=== PATIENT | female | born 1940 | race Caucasian/White ===

== ENCOUNTER 2017-11-30 08:36 | Outpatient (CLI) | payer MEDICARE, OTHER ==
[2017-11-30] MEDS ORDERED: Iopamidol 370 76% 100 ML VIAL ONE (12:41)
== END 2017-11-30 08:37 | disposition home or self-care (01) ==
LOC: BICCT 08:36
PROVIDERS: ATTEND Family Medicine
DX: R19.7 Diarrhea, unspecified (principal); R11.2 Nausea with vomiting, unspecified
CPT/HCPCS: 74177

== ENCOUNTER 2019-10-25 15:49 | Outpatient (CLI) | payer MEDICARE, OTHER ==
--- NOTE | 2019-10-25 16:50 | RAD ---
RADIOGRAPH LUMBAR SPINE 2 VIEWS: DATE: 10/25/2019 HISTORY: 79-year-old female with low back pain and lumbar radiculopathy. COMPARISON: No prior lumbar spine studies are available. There is a thoracic spine radiograph of 01/11/2017. FINDINGS: There are 5 lumbar-type vertebrae. Previous T-spine radiograph demonstrated approximately 60-75% loss of height of the T12 vertebral bod y. There has been slight interval worsening of loss of height, currently approximately 85% maximum. There is a broad indentation of the superior endplate of L3 resulting in maximum of approximately 20- 35% central loss of height. There is associated minimal bony retropulsion of the posterior-superior aspect of the vertebral body. IMPRESSION: 1) there has been mild interval progression of high-grade old compression fracture of T12 vertebral b peter since 01/11/2017. The interval progression is of indeterminate age. 2) mild compression fracture-burst fracture of L3 vertebra, of indeterminate age.
--- NOTE | 2019-10-25 16:52 | RAD ---
Radiograph right hip 2 views: DATE: 10/25/2019 HISTORY: 79-year-old female with acute right hip-sacral pain. FINDINGS: Femoral head contour is maintained. Little or no right hip joint space narrowing. No subcapital osteo phytes. No fracture or dislocation. Degenerative changes of bilateral SI joints are mild to moderate, typical for this age group. IMPRESSION: No major pathology identified.
--- NOTE | 2019-10-25 16:53 | RAD ---
Radiograph pelvis one view: 10/25/2019 HISTORY: 79-year-old female with right pelvic pain FINDINGS: Pelvic ring is intact with no evidence of destructive osseous lesion. Bilateral femoral head contours are normal. No high-grade hip joint space narrowing. No fracture identified. IMPRESSION: Negative.
== END 2019-10-25 15:50 | disposition home or self-care (01) ==
LOC: BICRAD 15:49
PROVIDERS: ATTEND Family Medicine
DX: M53.3 Sacrococcygeal disorders, not elsewhere classified (principal); Z87.81 Personal history of (healed) traumatic fracture
CPT/HCPCS: 72100; 72170

== ENCOUNTER 2020-04-22 12:05 | Outpatient (CLI) | payer MEDICARE, OTHER ==
--- NOTE | 2020-04-22 13:02 | RAD ---
Exam: 2 views lumbar spine COMPARISON: 10/25/2019 HISTORY: Pain. Previous compression fractures. FINDINGS: AP and lateral weightbearing views of the lumbar spine demonstrate 5 lumbar type vertebra. Stable mild loss of vertebral body height at L3. Interval mild loss of vertebral body height at L2 and moderate loss of vertebral body height at L4. Progression of loss of vertebral body height at T12 . Stable atherosclerosis No spondylolisthesis IMPRESSION: 1. Slight interval progression in terms of loss of vertebral body height at T12. 2. Interval mild compression fracture at L2, age indeterminate. Interval moderate compression fractur e at L4, age indeterminate. 3. Stable compression deformity at L3. 4. Further evaluation with noncontrast lumbar spine MRI may be beneficial.
== END 2020-04-22 12:06 | disposition home or self-care (01) ==
LOC: BICRAD 12:05
PROVIDERS: ATTEND Family Medicine
DX: M54.5 Low back pain (principal); M43.9 Deforming dorsopathy, unspecified
CPT/HCPCS: 36415; 72100; 80053; 80061; 83036

== ENCOUNTER 2020-04-24 13:13 | Outpatient (CLI) | payer MEDICARE, OTHER ==
--- NOTE | 2020-04-24 17:02 | MRI ---
LUMBAR SPINE MRI WITHOUT CONTRAST: 04/24/20 COMPARISON: None. HISTORY: Shaky legs, radiculopathy with pain, recent radiographs performed 04/22/20 demonstrated multiple fract ures within the lumbar spine. TECHNIQUE: Multiplanar and multisequence MR imaging of the lumbar spine is obtained without contrast. FINDINGS: On the basis of five lumbar type vertebral bodies, the conus medullaris terminates at the L1-2 level. There is a remote burst fracture with mild retropulsion at T12. There is increased STIR signal withi n the L2, L3, and L4 vertebral bodies consistent with marrow edema. These vertebral bodies also demon strate irregularity of the superior end plates as seen on the recent radiographs performed 04/22/20. T his is consistent with acute superior end plate fractures of the L2, L3 and L4 vertebral bodies. The edema is most intense within the L4 vertebral body. No significant anterolisthesis or retrolisthesis is noted within the lumbar spine. T12-L1: Osseous retropulsion associated with the chronic burst fracture or T12 causes mild central ca nal stenosis. Intervertebral disc desiccation noted with mild disc bulge and mild bilateral facet hyp ertrophy. No significant central canal or neural foraminal stenosis. L1-2: Mild bilateral facet hypertrophy. There is disc space narrowing with disc desiccation and minim al disc bulge. No significant central canal or neural foraminal stenosis. L2-3: There is disc desiccation with mild disc bulge and mild bilateral facet hypertrophy. There is n o significant central canal or neural foraminal stenosis. L3-4: Mild bilateral facet hypertrophy. There is disc space narrowing with disc desiccation. No signi ficant central canal or neural foraminal stenosis. L4-5: Mild bilateral facet hypertrophy. There is disc desiccation. No significant central canal or ne ural foraminal stenosis. L5-S1: No central canal neural foraminal stenosis. No retropulsion is noted with respect to the acute L2, L3 or L4 vertebral body fracture. Imaged retroperitoneal structures appear grossly unremarkable. IMPRESSION: Acute superior end plate fractures of L2, L3, and L4 as detailed above, as seen on the 04/22/20 radiog raphs of the lumbar spine. POS: [facility]
== END 2020-04-24 13:14 | disposition home or self-care (01) ==
LOC: BICMRI 13:13
PROVIDERS: ATTEND Family Medicine
DX: M54.5 Low back pain (principal); S32.029A Unspecified fracture of second lumbar vertebra, initial encounter for closed fracture; S32.039A Unspecified fracture of third lumbar vertebra, initial encounter for closed fracture; S32.049A Unspecified fracture of fourth lumbar vertebra, initial encounter for closed fracture
CPT/HCPCS: 72148

== ENCOUNTER 2020-06-22 09:58 | Inpatient (IN) | payer MEDICARE, OTHER ==
[2020-06-22] MEDS ORDERED: Succinylcholine Chloride 20 MG/ML 10 ml SYRINGE FS ONE (10:05)
[2020-06-22] MEDS ORDERED: Fentanyl 100 MCG/2 ML VIAL ONE (10:30)
[2020-06-22] MEDS ORDERED: fentaNYL Citrate/PF 2,000 MCG in Sodium Chloride 0.9% 60 ML IV SCH (10:31)
[2020-06-22] MEDS ORDERED: Propofol 1,000 MG/100 ML VIAL IV ONE (10:32)
--- NOTE | 2020-06-22 10:37 | RAD ---
RADIOGRAPH CHEST 1 VIEW: DATE: 06/22/2020 TIME: 10:13 AM HISTORY: 80-year-old female with dyspnea and hypoxemia, status post intubation COMPARISON: 08/02/2005 FINDINGS: New finding of diffuse mild interstitial densities in the mid and lower lung zones. In the right lowe r lung zone, these are confluent into alveolar infiltrates. New ETT with tip at mid thoracic trachea. New esophagogastric tube coursing inferior to the diaphragm. No cardiomegaly or pneumothorax. IMPRESSION: 1) status post intubation with endotracheal tube and esophagogastric tube. 2) diffuse interstitial densities, right greater than left.
[2020-06-22] MEDS ORDERED: Sodium Chloride 0.9% 100 ML ONE (10:47)
[2020-06-22] MEDS ORDERED: cefTRIAXone\\ROCEPHIN 2 GM VIAL ONE (10:47)
[2020-06-22] MEDS ORDERED: Azithromycin 500 MG VIAL ONE (10:47)
[2020-06-22 10:48] LABS: ALT (SGPT) 25 U/L (8-55); AST (SGOT) 33 U/L (5-34); Albumin 3.9 g/dL (3.4-4.8); Alkaline Phosphatase 191 U/L (40-110); Anion Gap 17 mmol/L (10-20); BUN (Urea Nitrogen) 9 mg/dL (9.8-20.1); Bilirubin, Total 0.5 mg/dL (0.2-1.2); CK (CPK) 51 U/L (29-168); Calc. Creatinine Clearance 0 mL/min (70-130); Calcium 9.5 mg/dL (7.8-10.44); Carbon Dioxide 22 mmol/L (23-31); Chloride 101 mmol/L (98-107); Estimated GFR-MDRD 52; Globulin 3.9 g/dL (2.4-3.5); Glucose 406 mg/dL (83-110); Potassium 4.4 mmol/L (3.5-5.1); Protein, Total 7.8 g/dL (6.0-8.3); Sodium 136 mmol/L (136-145)
[2020-06-22 10:50] LABS: Hemoglobin 16.4 g/dL (12.0-16.0); Mean Corpuscular Hemoglobin 31.1 pg (27.0-31.0); Mean Corpuscular Volume 91.5 fL (78.0-98.0); Mean Platelet Volume 7.8 fL (7.4-10.4); Platelet Count 302 thou/uL (130-400); RBC Distribution Width 13.5 % (11.5-14.5); Red Blood Cell (RBC) Count 5.28 mill/uL (4.20-5.40)
[2020-06-22 10:52] LABS: Actual Bicarbonate (HCO3a) 19.6 mEq/L (22-28); Analyzer IN Cardio ER; Base Excess (BEa) -6.6 mEq/L (-2.0 to +3.0); CO2 Tension 41.5 mmHg (35.0-45.0); Calcium, Ionized (arterial) 1.22 mmol/L (1.12-1.30); Carboxyhemoglobin (COHb) 0.4 gm% (0.0-3.0); Hemoglobin (Hb) 16.1 g/dL (12.0-16.0); O2 Tension (PaO2), arterial 197.6 mmHg (> 60.0); Potassium - ABG Lab 4.21 mmol/L (3.70-5.30); pH, Arterial 7.29 (7.35-7.45)
[2020-06-22 10:59] LABS: ALV-art Gradient 463.525 (0-20); Puncture Site LBA
[2020-06-22 11:09] LABS: CKMB 2.1 ng/mL (0-6.6)
[2020-06-22 11:12] LABS: Band 1 % (5-11); Eosinophils 2 % (0-10); Lymphocytes 58 % (21-51); MDiff Complete? YES; Monocytes 3 % (0-10); Neutrophil 30 % (42-75); Platelet Morphology Comment Appears Adequate; Reactive Lymphocytes 5 % (0-10); White Blood Cell (WBC) Count 25.5 thou/uL (4.8-10.8)
[2020-06-22] MEDS ORDERED: Midazolam HCl 2 mg/2 ml Vial ONE (11:19)
--- NOTE | 2020-06-22 11:45 | CT ---
CT BRAIN WITHOUT CONTRAST: INDICATIONS: Altered mental status and fever. COMPARISON: Prior CT brain dated 01/11/2017. FINDINGS: Scattered hypodensities within the periventricular white matter appear largely stable when accounting for differences in scan technique. No definite acute infarct, hemorrhage or hydrocephalus is present . The septum pellucidum and third ventricle are midline. The mastoid air cells are clear. The paranas al sinuses are clear. The patient is intubated with associated nasogastric tube placement. IMPRESSION: 1. No acute intracranial abnormality. 2. Stable chronic ischemic change. POS: [facility]
--- NOTE | 2020-06-22 11:46 | CT ---
CT ANGIOGRAM THORAX WITH CONTRAST: (CTA pulmonary angiogram) DATE: 06/22/2020 HISTORY: 80-year-old female with dyspnea, respiratory distress TECHNIQUE: IV injection of iodinated contrast. Scan acquisition timing attempted to coincide with iodinated contrast bolus reaching maximal density in pulmonary arteries. 3-D MIP reconstructions. FINDINGS: Very good contrast opacification of pulmonary arteries. No filling defects in the pulmonic trunk, left and right main pulmonary arteries, or any of the proxi mal through distal branches. Faint contrast opacification of thoracic aorta. Atherosclerosis with calcified plaque, ectasia, and tortuosity of thoracic aorta. Esophagogastric tube. Endotracheal tube distal tip at mid thoracic trachea. Small bilateral pleural effusions occupying approximately 20% volume of each hemithoracic cavity. Adjacent broad, moderately large consolidations in the bilateral lower lobes with air bronchograms, p robably representing passive atelectasis, although pneumonia or aspiration is not ruled out. Additionally, there are heterogeneously distributed ill-defined broad groundglass densities, plus sma ller focal nodular densities, throughout the rest of the right lower lobe, and throughout the right upper lobe and right middle lobe. There are a few minimal scattered such densities in the contralater al left lower lobe and left upper lobe. No pericardial effusion or pneumothorax. Atherosclerotic calcification of coronary arteries. IMPRESSION: 1) no pulmonary thromboembolism. 2) small bilateral pleural effusions. 3) broad consolidations in bilateral lower lobes. These could represent passive atelectasis secondary to the pleural effusions, but aspiration or bacterial pneumonia are not excluded. 4) nonspecific finding of groundglass densities and nodular densities throughout the rest of the righ t lower lobe, right upper lobe, and right middle lobe. Possibilities include viral pneumonia and interstitial edema.
[2020-06-22] MEDS ORDERED: Acetaminophen 650 MG Suppository PR PRN (11:57)
[2020-06-22 12:03] LABS: SARS-CoV-2 NAA Rapid Test Not Detected (NotDetected)
[2020-06-22 12:48] LABS: Bacteria/HPF None Seen HPF (None Seen); Bilirubin Negative (Negative); Blood, Urine Negative (Negative); Clarity Clear (Clear); Glucose, Urine (Dipstick) 500 mg/dL (Negative); Ketone, Urine Negative (Negative); Leukocyte Negative Leu/uL (Negative); Nitrite Negative (Negative); Protein, Urine (Dipstick) 300 mg/dL (Neg-Trace); RBC/HPF 0-3 HPF (0-3); Specific Gravity, Urine 1.012 (1.002-1.036); Squamous Epithelial None Seen HPF (0-3); Urobilinogen Normal mg/dL (Less than 2); WBC/HPF 0-3 HPF (0-3)
[2020-06-22 13:31] LABS: Troponin I 0.144 ng/mL (< 0.028)
[2020-06-22] MEDS ORDERED: DISCONTINUE PREVIOUS NARCOTIC PAIN MEDICATIONS AND BENZODIAZEPINES FS SCH (13:31)
[2020-06-22] MEDS ORDERED: Fentanyl BOLUS 250 ML IVPB PRN (13:31)
[2020-06-22] MEDS ORDERED: Propofol BOLUS 1,000 MG/100 ML VIAL IV PRN (13:31)
[2020-06-22] MEDS ORDERED: Morphine 2 MG/ML VIAL SLOW IVP PRN (13:31)
[2020-06-22 13:46] LABS: Lactic Acid 4.2 mmol/L (0.5-2.2)
[2020-06-22 14:21] LABS: Lactic Acid 4.1 mmol/L (0.5-2.2)
[2020-06-22 14:25] VITALS: BMI 27.4
[2020-06-22] MEDS: NS 0.9% w/ 20 MEQ KCL 1,000 ML/1,000 ML BAG IV SCH (14:45)
[2020-06-22] MEDS ORDERED: Iopamidol-370 76% 500 ML 1 ML ONE (14:48)
[2020-06-22] MEDS ORDERED: Dextrose 50% Abboject 50 ML SYRINGE SLOW IVP PRN (15:07)
[2020-06-22] MEDS ORDERED: Dextrose 5% in Water 1,000 ML IV PRN (15:07)
--- NOTE | 2020-06-22 15:11 | HP ---
CHIEF COMPLAINT: Altered mentation, fever, cough. HISTORY OF PRESENT ILLNESS: An 80-year-old active female with a history of coronary artery disease, hyperlipidemia, TIA without significant residual deficit, type 2 diabetes mellitus, aortic sclerosis, hypertension, major depressive disorder, presenting with fever, altered mentation, and hypoxia. She was in her baseline functional status few days prior. 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 On , she was doing good, but today found to have fever and confusion as well as wheezing. During the ER evaluation, her sats were initially in 80s. She is moving her extremities spontaneously. Given her severe hypoxia and altered mentation, she got intubated in the ER. Her troponin was indeterminate and tachycardia. The EKG was negative for any ST-T wave changes. Chest x-ray showed significant infiltrate in the right upper lobe, middle lobe, as well as right lower lobe along with nodular densities. Her white count was significantly elevated at 25,000. Her UA is negative for any sign of infection. She was started on 2 L of fluid as well as ceftriaxone and Zithromax in the ER. Her lactic acid is elevated significantly at 6.1 with a repeat at 4.2. REVIEW OF SYSTEMS: Not obtainable. ALLERGIES: SHE IS ALLERGIC TO LIRAGLUTIDE. PAST MEDICAL HISTORY: 1. History of hypertension. 2. Hyperlipidemia. 3. Type 2 diabetes mellitus. 4. Valvular heart disease. 5. Iron deficiency anemia. 6. Aortic sclerosis. 7. Osteoporosis. 8. TIA. 9. Major depressive disorder. 10. Hearing loss. HOME MEDICATIONS: Not updated yet. FAMILY SOCIAL HISTORY: Not obtained as the patient is being intubated. FAMILY HISTORY: Not able to gather the information. PHYSICAL EXAMINATION: VITAL SIGNS: Her pulse is 69, blood pressure 103/67. She is saturating about 97% with FiO2 of 50. GENERAL: The patient is on vent. No volume overload picture. Breathing with the vent. SKIN: The patient did not have any skin changes including abrasions. CARDIOVASCULAR: Regular rate and rhythm without murmurs, rubs, or gallops. LUNGS: With anterior auscultation. I did not appreciate much stridor, wheezing , or coarse crackles. ABDOMEN: Soft, nontender, nondistended. Bowel sounds are positive. NEUROLOGICAL: No focal deficits. EXTREMITIES: I did not appreciate any rash or other abnormalities. Dorsalis pedis pulse palpable. LABORATORY DATA: CBC with WBC of 25.5, hemoglobin 16.4, platelet is 302,000. Her electrolyte panel with a creatinine 1.02, anion gap of 17, bicarb of 22, sodium of 136, potassium 4.4. Her lactic acid 6.1 and 4.2 with a repeat. Troponin 0.034 and repeat was 0.144. Her BNP is 815. She is negative for COVID. IMPRESSION AND PLAN: This is an 80-year-old female with multiple medical histories, presenting with the followin. Sepsis, secondary to community-acquired pneumonia, present on admission. Blood cultures are done. We will follow up the aggressive IV fluid hydration with 30 mL/kg and she got 2 L so far. We will continue for another liter before titrating further down. Follow up with blood cultures. Continue with ceftriaxone and Zithromax to cover for community-acquired pneumonia and escalate or deescalate the antibiotics as clinically indicated. Presenting with severe lactic acidosis and 25,000 white count, wondering whether there is any additional process going on. 1b. Acute hypoxic respiratory failure, requiring intubation. 1c. Aspiration pneumonia cannot be ruled out. 2. Type 2 diabetes mellitus. Her current blood glucose around 406. We will add the scheduled insulin as well as sliding scale. 3. Indeterminate/abnormal troponin, obviously due to dehydration, pneumonia, and lactic acidosis. Suggestive of metabolic mismatch/demand ischemia. The patient does have a history of coronary artery disease. We will follow the clinical course. 4.Elevated BNP of 815 and creatinine 1.02. I do not have her home medications yet as well. We will get the 2D echo to assess fully her heart function. Once the sepsis protocol completed, we may have to start her on diuretics if the echo is suggestive of less than normal EF. Type 2 diabetes mellitus. Check A1c. Start her on a scheduled and sliding scale insulin. Place NG tube and consider starting tube feeds tomorrow. DVT prophylaxis with Lovenox. Full code. Job ID: [id number] [facility]
[2020-06-22 16:06] LABS: Bacteria/HPF None Seen HPF (None Seen); Bilirubin Negative (Negative); Blood, Urine Trace (Negative); Clarity Clear (Clear); Glucose, Urine (Dipstick) 200 mg/dL (Negative); Ketone, Urine Negative (Negative); Leukocyte Negative Leu/uL (Negative); Nitrite Negative (Negative); Protein, Urine (Dipstick) 100 mg/dL (Neg-Trace); Specific Gravity, Urine 1.035 (1.002-1.036); Squamous Epithelial 0-3 HPF (0-3); Urobilinogen Normal mg/dL (Less than 2); pH, Urine 6.5 (5.0-9.0)
[2020-06-22 16:52] LABS: Troponin I 0.422 ng/mL (< 0.028)
[2020-06-22 18:15] LABS: CKMB 4.9 ng/mL (0-6.6)
[2020-06-22] MEDS: Enoxaparin Sodium 60 MG/0.6 ML SYRINGE SC SCH (20:03)
[2020-06-22] MEDS: Insulin Glargine 5 UNITS in Pre-Filled Syringe SC SCH (20:03)
[2020-06-22] MEDS: HumaLOG 300 UNITS/3 ML VIAL SC PRN (20:04)
[2020-06-22] MEDS ORDERED: Enoxaparin Sodium 40 MG/0.4 ML SYRINGE SC SCH (21:00)
[2020-06-23] MEDS: Acetaminophen 325 MG TAB PO PRN (00:27)
[2020-06-23] MEDS: Propofol 1,000 MG/100 ML VIAL IV PRN ×3 (00:27→19:45)
[2020-06-23] MEDS: NS 0.9% w/ 20 MEQ KCL 1,000 ML/1,000 ML BAG IV SCH (01:44)
[2020-06-23] MEDS: fentaNYL Citrate/PF 2,000 MCG in Sodium Chloride 0.9% 60 ML IV SCH (03:08)
[2020-06-23 03:41] LABS: Hemoglobin A1c 6.9 % (4.0-6.0)
[2020-06-23] MEDS: HumaLOG 300 UNITS/3 ML VIAL SC PRN ×3 (05:53→17:46)
[2020-06-23 06:38] LABS: Chloride 110 mmol/L (98-107); Potassium 4.4 mmol/L (3.5-5.1); Sodium 138 mmol/L (136-145)
[2020-06-23 06:39] LABS: Glucose 227 mg/dL (83-110)
[2020-06-23 06:41] LABS: Anion Gap 14 mmol/L (10-20); Carbon Dioxide 18 mmol/L (23-31)
[2020-06-23 06:42] LABS: Calc. Creatinine Clearance 47 mL/min (70-130); Estimated GFR-MDRD 47
[2020-06-23 06:43] LABS: BUN (Urea Nitrogen) 15 mg/dL (9.8-20.1)
[2020-06-23 06:45] LABS: #Lymphocytes 2.3 thou/uL (1.20-3.40); #Monocytes 0.8 thou/uL (0.11-0.59); #Neutrophils 7.4 thou/uL (1.40-6.50); %Basophils 0.3 % (0.0-1.0); %Eosinophils 0.3 % (0.0-10.0); %Lymphocytes 22.1 % (21.0-51.0); %Monocytes 7.1 % (0.0-10.0); %Neutrophils 70.1 % (42.0-75.0); Hemoglobin 12.1 g/dL (12.0-16.0); Magnesium 1.4 mg/dL (1.6-2.6); Mean Corpuscular HGB CONC 32.8 g/dL (32.0-36.0); Mean Corpuscular Hemoglobin 29.6 pg (27.0-31.0); Mean Corpuscular Volume 90.1 fL (78.0-98.0); Mean Platelet Volume 8.9 fL (7.4-10.4); Platelet Count 143 thou/uL (130-400); RBC Distribution Width 13.9 % (11.5-14.5); Red Blood Cell (RBC) Count 4.08 mill/uL (4.20-5.40); White Blood Cell (WBC) Count 10.5 thou/uL (4.8-10.8)
[2020-06-23 07:20] LABS: Actual Bicarbonate (HCO3a) 18.9 mEq/L (22-28); Base Excess (BEa) -6.5 mEq/L (-2.0 to +3.0); CO2 Tension 37.1 mmHg (35.0-45.0); Calcium, Ionized (arterial) 1.14 mmol/L (1.12-1.30); Carboxyhemoglobin (COHb) 0.3 gm% (0.0-3.0); Hemoglobin (Hb) 12.8 g/dL (12.0-16.0); O2 Tension (PaO2), arterial 101.6 mmHg (> 60.0); Potassium - ABG Lab 4.18 mmol/L (3.70-5.30); pH, Arterial 7.32 (7.35-7.45)
[2020-06-23 07:21] LABS: Puncture Site RRA
[2020-06-23 07:22] LABS: ALV-art Gradient 172.875 (0-20)
[2020-06-23] MEDS ORDERED: Electrolyte Replacement Protoc 1 EACH EACH FS ONE (07:26)
[2020-06-23] MEDS ORDERED: Electrolyte Replacement Protocol FS PRN (07:30)
--- NOTE | 2020-06-23 08:04 | CON ---
DATE OF CONSULTATION: 06/23/2020 REASON FOR CONSULTATION: Shortness of breath, acute respiratory failure requiring mechanical ventilation. HISTORY OF PRESENT ILLNESS: This is an 80-year-old female, who was hospitalized yesterday with complaints of increasing shortness of breath and confusion. She was intubated in the emergency room, placed on mechanical ventilation. PAST MEDICAL HISTORY: 1. Hypertension. 2. Diabetes mellitus type 2. 3. Hyperlipidemia. 4. Valvular heart disease. 5. Iron deficiency anemia. 6. Aortic sclerosis. 7. Osteoporosis. 8. Transient ischemic attack. 9. Major depressive disorder. 10. Hearing loss. PAST SURGICAL HISTORY: Tubal ligation. ALLERGIES: LIRAGLUTIDE. REVIEW OF SYSTEMS: Unobtainable. MEDICATIONS: Prior to admission: 1. Januvia. 2. Glucophage. 3. Toprol-XL. 4. Cozaar. 5. Fluoxetine. 6. Jardiance. Inpatient medications: 1. Azithromycin. 2. Rocephin. 3. Fentanyl. 4. Lorazepam. 5. Losartan. 6. Metoprolol. 7. Morphine. 8. Propofol. PHYSICAL EXAMINATION: VITAL SIGNS: Temperature 98.5, pulse 95, blood pressure 136/86. No fever since admission. HEENT: Unremarkable. NECK: No adenopathy or JVD. LUNGS: Inspiratory crackles on both bases. CARDIOVASCULAR: S1 and S2 regular audible murmur. ABDOMEN: Soft and nontender to palpation. EXTREMITIES: No clubbing, cyanosis, or edema. NEUROLOGIC: Grossly intact throughout. LABORATORY DATA: White blood cell count 10.5, hematocrit 36.8, and platelet count 143, no bandemia present. A pH of 7.32, pCO2 of 37, pO2 of 102 on SIMV, rate 14, tidal volume , PEEP 5, pressure 10, FiO2 of 45%. Sodium 138, potassium 4.4, chloride 110, CO2 of 18, BUN 15, creatinine 1.1, glucose 227. BNP level 815. CT of the chest demonstrates bilateral small effusions, some atelectasis versus pneumonitis at the bases. ASSESSMENT: 1. Acute hypoxic respiratory failure requiring mechanical ventilation. Etiology could be congestive heart failure or pneumonia. Oxygenation seems to be much better compared to yesterday. PLAN: In addition to the antibiotics, she probably needs to be diuresed. I will give her some IV Lasix. An echocardiogram is pending for today. Cardiology has been consulted on her case. I would anticipate her being extubated as soon as tomorrow if things go well today. Job ID: [id number]
[2020-06-23] MEDS ORDERED: Magnesium Sulfate 4 GM in Sodium Chloride 0.9% 250 ML 250 ML IVPB SCH (08:15)
[2020-06-23] MEDS: Pantoprazole 40 MG VIAL IVP SCH (09:07)
[2020-06-23] MEDS: Furosemide 40 MG/4 ML VIAL SLOW IVP SCH ×2 (09:07→19:45)
[2020-06-23] MEDS: Losartan 25 MG TAB PO SCH (09:08)
[2020-06-23] MEDS: Enoxaparin Sodium 60 MG/0.6 ML SYRINGE SC SCH (09:20)
[2020-06-23] MEDS ORDERED: Azithromycin 500 MG in Sodium Chloride 0.9% 250 ML 250 ML IVPB SCH (11:00)
[2020-06-23] MEDS: cefTRIAXone\\ROCEPHIN 1 GM in Sodium Chloride 0.9% 100 ML IVPB SCH (11:16)
--- NOTE | 2020-06-23 11:45 | CON ---
DATE OF CONSULTATION: 06/23/2020 REASON FOR CONSULTATION: Shortness of breath. PRIMARY RETAIL STORE CLERK: Jose Daniel Shah MD. HISTORY OF PRESENT ILLNESS: Ms. Watkins is a pleasant 80-year-old white female who comes to the hospital for altered mentation, fever, and a cough. She was found by her family members with a fever, confused, and wheezing. She was brought into the ER. She was in respiratory distress. She was intubated and sedated. Cardiology is being consulted as her troponin is elevating. Ms. Watkins remains sedated and intubated and cannot provide any history at this time. Looking back at her records, she has a history of aortic stenosis. She had an echocardiogram back in February of this year, that showed severe with normal EF, her valve area was 0.8 sq cm and had a mean gradient of 46 mmHg. She was offered more invasive interventions to treat this valve; however, she has declined for some time now. PAST MEDICAL HISTORY: 1. Hypertension. 2. Hyperlipidemia. 3. Type 2 diabetes. 4. Aortic valve stenosis, severe, on last echo. 5. Iron-deficiency anemia. 6. Osteoporosis. 7. TIA. 8. Major depressive disorder. 9. Hearing loss. OUTPATIENT MEDICATIONS: 1. Januvia. 2. Metformin. 3. Metoprolol succinate 25 mg a day. 4. Losartan 50 mg a day. 5. Fluoxetine 60 mg a day. 6. Jardiance 10 mg a day. FAMILY HISTORY: Noncontributory. SOCIAL HISTORY: No alcohol, tobacco, or drugs per report. REVIEW OF SYSTEMS: Unobtainable as the patient is sedated and intubated. ALLERGIES: LIRAGLUTIDE, WHICH IS SAME VICTOZA. PHYSICAL EXAMINATION: VITAL SIGNS: Temperature 100.0 is the highest one, this was just earlier this morning; pulse 94, respiratory rate 14, saturating 95% on 40% FiO2, and blood pressure 108/65. GENERAL: Awake, alert, and oriented x3, in no distress. HEENT: Normocephalic and atraumatic. NECK: Supple. LUNGS: Crackles at the bases. CARDIOVASCULAR: S1 and S2. No S3 or S4. There is a grade 3/6 systolic murmur, late-peaking, on the right upper sternal border. ABDOMEN: Soft. Positive bowel sounds. EXTREMITIES: Trace edema. SKIN: Warm and dry. LABORATORY DATA: Laboratory work was reviewed. CBC with a white count of 25, down to 10; hemoglobin of 16, down to 12; platelet count of 143. D-dimer was elevated. ABG was reviewed. Chemistries were reviewed. Creatinine 1.12. UA was fairly unremarkable. COVID-[address] detected[address] of the brain showed no acute intracranial abnormality, chronic stable ischemic changes. CT of the chest with contrast showed no evidence of PE. There are small bilateral pleural effusions, consolidation in bilateral lower lobes, ground-glass densities and nodular densities throughout the rest of the right lower lobe. Viral pneumonia is a consideration. ASSESSMENT: 1. Type 2 demand type of ischemia. 2. Severe aortic stenosis. 3. Mgkgt-zi-lwtybpo diastolic heart failure. 4. Possible sepsis. PLAN: 1. Continue conservative care at this point. 2. I agree with IV antibiotics per primary team. 3. Agree with IV Lasix at this time. We will schedule her for 40 IV b.i.d. 4. She has refused more invasive interventions in the past. We will continue to treat conservatively until she is out of the ventilator. Thank you for letting us to participate in the care of the patient. Dr. Shah, her primary floral specialist, will follow up in the morning. Job ID: [id number]
--- NOTE | 2020-06-23 12:13 | PDOC.HOSPP ---
- Subjective Encounter Date: 06/23/20 Encounter Time: 09:40 Subjective: Patient is quite awake on vent. Plan for to be extubated pretty soon probably by tomorrow. Her white count is coming down is actually reduced from 25 to 10 K. Lasix started. Echo showed severe aortic stenosis. Blood cultures negative so far. - Objective Vital Signs & Weight: Vital Signs (12 hours) Temp Pulse Resp BP Pulse Ox 06/23/20 10:30 95 06/23/20 10:00 14 06/23/20 08:00 100 F H 14 95 06/23/20 07:14 100 06/23/20 06:00 17 06/23/20 04:00 14 06/23/20 03:00 98.5 F 06/23/20 02:17 72 97/60 06/23/20 02:00 14 Weight Weight 164 lb 14.492 oz Most Recent Monitor Data Heart Rate from ECG 69 NIBP 93/60 NIBP BP-Mean 71 Respiration from ECG 14 SpO2 94 I&O: 06/22/20 06/23/20 06/24/20 06:59 06:59 06:59 Intake Total 1672.7 Output Total 793 475 Balance 879.7 -475 Result Diagrams: 06/23/20 06:03 06/23/20 06:03 Additional Labs: Accuchecks 06/23/20 06/23/20 06/22/20 10:37 05:54 19:44 POC Glucose 205 H 225 H 230 H 06/22/20 16:05 POC Glucose 249 H Hospitalist ROS - Medication Medications: Active Medications Generic Name Dose Route Start Last Admin Trade Name Sandeep PRN Reason Stop Dose Admin Acetaminophen 650 mg 06/22/20 11:57 06/23/20 00:27 Tylenol PO 650 mg Q4H PRN Administration Headache/Fever/Mild Pain (1-3) Furosemide 40 mg 06/23/20 09:00 06/23/20 09:07 Lasix SLOW IVP 40 mg BID KJ Administration Azithromycin 500 mg/ Sodium 250 mls @ 250 mls/hr 06/23/20 11:00 06/23/20 11: 16 Chloride IVPB 250 mls Q24HR KJ Administration Ceftriaxone Sodium 1 gm/ 100 mls @ 200 mls/hr 06/23/20 11:00 06/23/20 11:16 Sodium Chloride IVPB 100 mls Q24HR KJ Administration Potassium Chloride/Sodium Chloride 1,000 ml in 1,000 mls @ 75 mls/hr 06/22/20 13:00 06/23/20 01:44 Ns 0.9% W/ 20 Meq Kcl IV 06/23/20 15:39 1,000 mls .[id number] KJ Administration Fentanyl Citrate 2,000 mcg/ 100 mls @ 0 mls/hr 06/22/20 13:31 06/23/20 03:08 Sodium Chloride IV 07/22/20 13:31 100 mls INF KJ Administration Protocol Per Protocol Insulin Glargine 5 units/ 0.05 mls @ 0 mls/hr 06/22/20 21:00 06/22/20 20:03 Miscellaneous Medication SC 0.05 mls HS KJ Administration Insulin Human Lispro 0 units 06/22/20 15:07 06/23/20 10:33 Humalog SC 4 unit Q4H PRN Administration Moderate Correctional Scale Losartan Potassium 50 mg 06/23/20 09:00 06/23/20 09:08 Cozaar PO Not Given DAILY KJ Metoprolol Succinate 25 mg 06/23/20 09:00 06/23/20 09:08 Toprol Xl PO Not Given DAILY JK Pantoprazole Sodium 40 mg 06/23/20 09:00 06/23/20 09:07 Protonix IVP 40 mg DAILY KJ Administration Propofol 1,000 mg 06/22/20 13:31 06/23/20 00:27 Diprivan IV 07/22/20 13:31 1,000 mg INF PRN Administration TO ACHIEVE GOAL RASS Protocol - Exam General Appearance: NAD, awake alert Eye: PERRL ENT: normocephalic atraumatic Neck: supple Heart: RRR Respiratory: CTAB, normal chest expansion Gastrointestinal: soft, normal bowel sounds Neurological: cranial nerve grossly intact, no focal deficits Psychiatric: A&O x 3 Hosp A/P - Plan Sepsis secondary to community-acquired pneumonia present on admission Acute hypoxic respiratory failure secondary to pneumonia and vent Leukocytosis due to pneumonia COVID negative Blood cultures negative so far Continue with IV antibiotics NSTEMI type II mismatch demand ischemia due to sepsis and pneumonia No aggressive intervention except conservative medical management Hypertension/borderline low normal blood pressure -Hold her home regimen of losartan Severe aortic stenosis -Seems this has been addressed in the past and the patient refused Acute on chronic diastolic heart failure -Started on diuretics -Monitor her in and output -Echo report pending Mild bilateral pleural effusion--no intervention -Groundglass densities and nodular densities right lower lobe -Viral pneumonia with COVID is ruled out. Would benefit with a repeat CT of the chest in 3 to 6 months to evaluate for this existence are growth of these nodules. Full code
[2020-06-23] MEDS: Azithromycin 500 MG in Sodium Chloride 0.9% 250 ML 250 ML IVPB SCH (15:14)
[2020-06-23] MEDS: Insulin Glargine 5 UNITS in Pre-Filled Syringe SC SCH (19:45)
[2020-06-24] MEDS: Propofol 1,000 MG/100 ML VIAL IV PRN ×3 (01:54→20:51)
[2020-06-24 04:43] LABS: #Eosinphils 0.1 thou/uL (0.0-0.7); #Lymphocytes 1.8 thou/uL (1.20-3.40); #Monocytes 0.6 thou/uL (0.11-0.59); #Neutrophils 5.6 thou/uL (1.40-6.50); %Basophils 0.5 % (0.0-1.0); %Eosinophils 1.5 % (0.0-10.0); %Lymphocytes 22.2 % (21.0-51.0); %Neutrophils 68.9 % (42.0-75.0); Mean Corpuscular HGB CONC 32.8 g/dL (32.0-36.0); Mean Corpuscular Hemoglobin 29.3 pg (27.0-31.0); Mean Corpuscular Volume 89.4 fL (78.0-98.0); Mean Platelet Volume 8.6 fL (7.4-10.4); Platelet Count 141 thou/uL (130-400); Red Blood Cell (RBC) Count 3.76 mill/uL (4.20-5.40); White Blood Cell (WBC) Count 8.2 thou/uL (4.8-10.8)
[2020-06-24 05:13] LABS: Anion Gap 13 mmol/L (10-20); BUN (Urea Nitrogen) 15 mg/dL (9.8-20.1); Calc. Creatinine Clearance 48 mL/min (70-130); Calcium 8.2 mg/dL (7.8-10.44); Carbon Dioxide 23 mmol/L (23-31); Chloride 107 mmol/L (98-107); Estimated GFR-MDRD 48; Glucose 186 mg/dL (83-110); Sodium 140 mmol/L (136-145)
[2020-06-24 05:21] LABS: Potassium 2.9 mmol/L (3.5-5.1)
[2020-06-24] MEDS: Potassium Chloride 40 MEQ in Sodium Chloride 0.9% 250 ML 250 ML IVPB SCH ×2 (05:48→09:42)
[2020-06-24 06:53] LABS: Actual Bicarbonate (HCO3a) 19.8 mEq/L (22-28); Base Excess (BEa) -2.2 mEq/L (-2.0 to +3.0); CO2 Tension 26.2 mmHg (35.0-45.0); Calcium, Ionized (arterial) 1.11 mmol/L (1.12-1.30); Carboxyhemoglobin (COHb) 0.3 gm% (0.0-3.0); Hemoglobin (Hb) 11.7 g/dL (12.0-16.0); Potassium - ABG Lab 3.26 mmol/L (3.70-5.30)
[2020-06-24 06:59] LABS: Puncture Site RRA
--- NOTE | 2020-06-24 07:15 | RAD ---
CHEST 1 VIEW: Date: 06/24/2020 INDICATION: History of pneumonia. COMPARISON: Prior exam dated 06/22/2020. IMPRESSION: Bilateral effusions and air space disease appear slightly more pronounced. Cardiomegaly and pulmonary vascular congestion persists. The patient remains intubated with gastric catheter placement. No pneu mothorax is evident. Osseous structures are unchanged. POS: [facility]
--- NOTE | 2020-06-24 07:43 | PRG ---
DATE OF SERVICE: 06/24/2020 35 minutes of critical care time. SUBJECTIVE: This patient remains intubated on mechanical ventilation. She will wake up and follow commands. OBJECTIVE: VITAL SIGNS: Her temperature is 98.8, pulse 74, blood pressure 132/79, O2 saturation 100%. Intake 1979, output 2785. HEENT: Unremarkable. NECK: No adenopathy or JVD. CHEST: Fairly clear anteriorly. CARDIAC: S1, S2 regular with 2/6 systolic murmur. ABDOMEN: Soft and nontender. EXTREMITIES: No clubbing, cyanosis, or edema. LABORATORY DATA: Sodium 140, potassium 2.9, chloride 107, CO2 of 23, BUN 15, creatinine 1.1, and glucose 186. The pH 7.5, pCO2 of 26, PO2 of 104 on SIMV rate 14, tidal volume 490, PEEP 5, pressure support 10, FiO2 of 40%. White blood cell count 8.2, hematocrit 33.6, and platelet count 141. Chest x-ray continues to show some mild pulmonary edema. ASSESSMENT: Acute hypoxic respiratory failure. This is probably secondary to congestive heart failure from severe aortic stenosis. Her oxygenation has improved since yesterday, and she is probably a candidate for weaning trial and possible extubation. PLAN: 1. Spontaneous breathing trial followed by possible extubation. 2. Replace potassium. 3. Continue diuresis. Continue electrolyte supplementation. Job ID: [id number]
[2020-06-24] MEDS ORDERED: Morphine 4 MG/ML VIAL SLOW IVP PRN (08:18)
[2020-06-24] MEDS ORDERED: Morphine 4 MG/ML VIAL ONE (08:18)
[2020-06-24] MEDS ORDERED: niCARdipine 50 MG in Sodium Chloride 0.9% 250 ML 230 ML IV SCH (08:30)
[2020-06-24] MEDS ORDERED: niCARdipine 40MG In NaCl 40 MG/200 ML BAG IVPB SCH (08:30)
[2020-06-24] MEDS ORDERED: Furosemide 40 MG/4 ML VIAL SLOW IVP SCH (09:00)
[2020-06-24] MEDS: Enoxaparin Sodium 40 MG/0.4 ML SYRINGE SC SCH (09:39)
[2020-06-24] MEDS: Losartan 25 MG TAB PO SCH (09:41)
[2020-06-24] MEDS: Pantoprazole 40 MG VIAL IVP SCH (09:42)
--- NOTE | 2020-06-24 10:26 | PRG ---
DATE OF SERVICE: 06/24/2020 The patient has failed extubation. I tried her on BiPAP, it did not work. I spoke with the daughter over the phone, who wished to remain aggressive. Reintubated the patient orally with a 7.5 endotracheal tube using GlideScope visualization. The patient received propofol for induction. She will be placed back on mechanical ventilation. Job ID: [id number]
[2020-06-24] MEDS: HumaLOG 300 UNITS/3 ML VIAL SC PRN ×3 (11:16→20:57)
[2020-06-24] MEDS: cefTRIAXone\\ROCEPHIN 1 GM in Sodium Chloride 0.9% 100 ML IVPB SCH (11:18)
[2020-06-24 11:43] LABS: Actual Bicarbonate (HCO3a) 16.8 mEq/L (22-28); Analyzer IN Cardio ER; CO2 Tension 32.9 mmHg (35.0-45.0); Calcium, Ionized (arterial) 1.14 mmol/L (1.12-1.30); Carboxyhemoglobin (COHb) 0.4 gm% (0.0-3.0); Hemoglobin (Hb) 14.7 g/dL (12.0-16.0); O2 Tension (PaO2), arterial 65.8 mmHg (> 60.0); Potassium - ABG Lab 4.51 mmol/L (3.70-5.30); pH, Arterial 7.33 (7.35-7.45)
[2020-06-24 11:47] LABS: ALV-art Gradient 606.075 (0-20); Puncture Site RRA
--- NOTE | 2020-06-24 12:27 | PDOC.HOSPP ---
- Subjective Encounter Date: 06/24/20 Encounter Time: 10:40 Subjective: She got reintubated at this morning after a brief time with the BiPAP. Her blood pressure is high. Discussed with RN. - Objective Vital Signs & Weight: Vital Signs (12 hours) Temp Pulse Resp BP Pulse Ox 06/24/20 10:27 109 H 06/24/20 08:22 154 H 06/24/20 07:50 122 H 24 H 93 L 06/24/20 06:45 67 06/24/20 06:00 14 06/24/20 04:00 98.8 F 14 06/24/20 02:19 82 117/79 06/24/20 02:00 14 Weight Admit Weight 164 lb Weight 164 lb 14.492 oz Most Recent Monitor Data Heart Rate from ECG 74 NIBP 132/79 NIBP BP-Mean 96 Respiration from ECG 10 SpO2 100 I&O: 06/23/20 06/24/20 06/25/20 06:59 06:59 06:59 Intake Total 1672.7 1979 Output Total 793 2785 Balance 879.7 -806 Result Diagrams: 06/24/20 04:10 06/24/20 04:10 Additional Labs: Accuchecks 06/24/20 06/23/20 06/23/20 10:53 19:54 17:16 POC Glucose 310 H 167 H 178 H Hospitalist ROS - Medication Medications: Active Medications Generic Name Dose Route Start Last Admin Trade Name Freq PRN Reason Stop Dose Admin Acetaminophen 650 mg 06/22/20 11:57 06/23/20 00:27 Tylenol PO 650 mg Q4H PRN Administration Headache/Fever/Mild Pain (1-3) Enoxaparin Sodium 40 mg 06/24/20 09:00 06/24/20 09:39 Lovenox SC 40 mg 0900 KJ Administration Furosemide 40 mg 06/24/20 09:00 06/24/20 09:41 Lasix SLOW IVP 40 mg DAILY KJ Administration Ceftriaxone Sodium 1 gm/ 100 mls @ 200 mls/hr 06/23/20 11:00 06/24/20 11:18 Sodium Chloride IVPB 100 mls Q24HR KJ Administration Fentanyl Citrate 2,000 mcg/ 100 mls @ 0 mls/hr 06/22/20 13:31 06/23/20 03:08 Sodium Chloride IV 07/22/20 13:31 100 mls INF KJ Administration Protocol Per Protocol Insulin Glargine 5 units/ 0.05 mls @ 0 mls/hr 06/22/20 21:00 06/23/20 19:45 Miscellaneous Medication SC 0.05 mls HS KJ Administration Azithromycin 500 mg/ Sodium 250 mls @ 250 mls/hr 06/23/20 13:00 06/23/20 15: 14 Chloride IVPB Not Given Q24HR KJ Potassium Chloride 40 meq/ 270 mls @ 67.5 mls/hr 06/24/20 06:00 06/24/20 09: 42 Sodium Chloride IVPB 06/24/20 13:59 270 mls Q4H KJ Administration Insulin Human Lispro 0 units 06/22/20 15:07 06/24/20 11:16 Humalog SC 8 unit Q4H PRN Administration Moderate Correctional Scale Losartan Potassium 50 mg 06/23/20 09:00 06/24/20 09:41 Cozaar PO Not Given DAILY KJ Metoprolol Succinate 25 mg 06/23/20 09:00 06/24/20 09:41 Toprol Xl PO Not Given DAILY KJ Pantoprazole Sodium 40 mg 06/23/20 09:00 06/24/20 09:42 Protonix IVP 40 mg DAILY KJ Administration Propofol 1,000 mg 06/22/20 13:31 06/24/20 06:39 Diprivan IV 07/22/20 13:31 1,000 mg INF PRN Administration TO ACHIEVE GOAL RASS Protocol - Exam General - other findings: On vent Eye: PERRL ENT: normocephalic atraumatic Neck: supple Heart: RRR Respiratory: normal chest expansion Gastrointestinal: soft, normal bowel sounds Neurological: no focal deficits Hosp A/P - Plan Sepsis secondary to community-acquired pneumonia present on admission Acute hypoxic respiratory failure secondary to pneumonia and vent Leukocytosis due to pneumonia COVID negative Blood cultures negative so far Continue with IV antibiotics NSTEMI type II mismatch demand ischemia due to sepsis and pneumonia No aggressive intervention except conservative medical management Hypertension/borderline low normal blood pressure -Hold her home regimen of losartan Severe aortic stenosis -Seems this has been addressed in the past and the patient refused Acute on chronic diastolic heart failure -Started on diuretics -Monitor her in and output -Echo report pending Mild bilateral pleural effusion--no intervention -Groundglass densities and nodular densities right lower lobe -Viral pneumonia with COVID is ruled out. Would benefit with a repeat CT of the chest in 3 to 6 months to evaluate for this existence are growth of these nodules. Full code 25th Failed extubation She is reintubated. Chest x-ray today shows bilateral effusion and airspace disease more pronounced Persistent pulmonary vascular congestion -D-dimer is quite high at 3.46 -COVID negative Hypokalemia -Being replaced with IV fluid Type 2 diabetes mellitus A1c of 6.9 Hyperglycemia -He is already on scheduled Lantus 5 units and sliding scale insulin Lasix IV daily
[2020-06-24] MEDS: Azithromycin 500 MG in Sodium Chloride 0.9% 250 ML 250 ML IVPB SCH (13:04)
[2020-06-24] MEDS ORDERED: Sodium Chloride 0.9% 500 ML IV SCH (14:15)
[2020-06-24 16:37] LABS: Potassium 4.4 mmol/L (3.5-5.1)
--- NOTE | 2020-06-24 18:01 | PRG ---
DATE OF SERVICE: 06/24/2020 SUBJECTIVE: Ms. Watkins this morning, failed extubation. She required re-intubation. Ms. Watkins does have a previous history of [id number] aortic stenosis. We had discussed in the past about proceeding with a TAVR. She did have symptoms that would warrant the TAVR. She adamantly refused any aggressive means or measures. She want to continue with medical therapy. The patient's last echo was dated 03/04/2020. Her LVEF at that time was 55% to 60%. Her mean and peak gradient were 27 and 49 respectively with a calculated aortic valve area of 0.83. OBJECTIVE: GENERAL: She is currently intubated, sedated. VITAL SIGNS: Blood pressure 109/71, pulse , and temperature afebrile. NEUROLOGIC: The patient is alert and oriented x3 with no focal neurologic deficits. HEENT: Sclerae without icterus. Mouth has moist mucous membranes with normal pallor. NECK: No JVD. Carotid upstroke brisk. No bruits bilaterally. LUNGS: Clear to auscultation with unlabored respirations. BACK: No scoliosis or kyphosis. CARDIAC: Regular rate and rhythm with normal S1 and S2. No S3 or S4 noted. No significant rubs, murmurs, thrills, or gallops noted throughout the precordium. PMI is not displaced. There is no parasternal heave. ABDOMEN: Soft, nontender, nondistended. No peritoneal signs present. No hepatosplenomegaly. No abnormal striae. EXTREMITIES: 2+ femoral and 2+ dorsalis pedis pulses. No cyanosis, clubbing, or edema. SKIN: No gross abnormalities. PERTINENT LABORATORY DATA: Hemoglobin 11. Potassium 4.4, creatinine 1.1. IMPRESSION: 1. Respiratory failure. 2. Wwlcbbmj-mk-vfhkas aortic stenosis. RECOMMENDATIONS: Ms. Watkins is unlikely to do well without some type of treatment to help our valve. We will try and monitor closely on a ventilator and if she meets extubation criteria in the next several days, we will then re-attempt. We will certainly discuss further with Dr. Mark Anne. If she is not weanable, may then have a further discussion with family on how to proceed. The patient may ultimately need to be transferred for valvuloplasty in order to proceed with extubation potentially. Job ID: [id number]
[2020-06-24] MEDS: fentaNYL Citrate/PF 2,000 MCG in Sodium Chloride 0.9% 60 ML IV SCH (18:47)
[2020-06-24] MEDS: Lorazepam 2 MG/ML VIAL SLOW IVP PRN (20:51)
[2020-06-24] MEDS: Insulin Glargine 5 UNITS in Pre-Filled Syringe SC SCH (20:51)
[2020-06-25] MEDS: HumaLOG 300 UNITS/3 ML VIAL SC PRN ×4 (05:38→23:47)
[2020-06-25 06:22] LABS: #Lymphocytes 2.3 thou/uL (1.20-3.40); #Monocytes 0.9 thou/uL (0.11-0.59); #Neutrophils 7.3 thou/uL (1.40-6.50); %Basophils 0.2 % (0.0-1.0); %Eosinophils 0.2 % (0.0-10.0); %Monocytes 8.3 % (0.0-10.0); %Neutrophils 69.2 % (42.0-75.0); Hemoglobin 11.5 g/dL (12.0-16.0); Mean Corpuscular Hemoglobin 30.1 pg (27.0-31.0); Mean Platelet Volume 8.7 fL (7.4-10.4); Platelet Count 126 thou/uL (130-400); RBC Distribution Width 14.1 % (11.5-14.5); Red Blood Cell (RBC) Count 3.83 mill/uL (4.20-5.40); White Blood Cell (WBC) Count 10.6 thou/uL (4.8-10.8)
[2020-06-25] MEDS ORDERED: Magnesium 2 GM/50 ML 2 GM in Premix Bag 1 BAG IVPB SCH (06:30)
[2020-06-25 06:42] LABS: Anion Gap 17 mmol/L (10-20); BUN (Urea Nitrogen) 25 mg/dL (9.8-20.1); Calc. Creatinine Clearance 27 mL/min (70-130); Carbon Dioxide 17 mmol/L (23-31); Chloride 113 mmol/L (98-107); Estimated GFR-MDRD 24; Glucose 233 mg/dL (83-110); Potassium 4.5 mmol/L (3.5-5.1); Sodium 142 mmol/L (136-145)
[2020-06-25] MEDS ORDERED: Albumin 25% 25 GM/100 ML BOT IVPB ONE (07:23)
[2020-06-25 07:33] LABS: Actual Bicarbonate (HCO3a) 20.3 mEq/L (22-28); Analyzer IN Cardio OR; Base Excess (BEa) -2.3 mEq/L (-2.0 to +3.0); CO2 Tension 28.1 mmHg (35.0-45.0); Calcium, Ionized (arterial) 1.16 mmol/L (1.12-1.30); Hemoglobin (Hb) 11.3 g/dL (12.0-16.0); O2 Tension (PaO2), arterial 121.4 mmHg (> 60.0); Potassium - ABG Lab 4.04 mmol/L (3.70-5.30); pH, Arterial 7.48 (7.35-7.45)
[2020-06-25 07:37] LABS: ALV-art Gradient 199.975 (0-20)
--- NOTE | 2020-06-25 07:40 | PRG ---
DATE OF SERVICE: 06/25/2020 35 minutes of critical care time. SUBJECTIVE: The patient had to be reintubated yesterday and is now back on mechanical ventilation. OBJECTIVE: VITAL SIGNS: Her temperature is 99.9, pulse 69, and blood pressure 92/64. 24-hour intake 1674, output 730. HEENT: Unremarkable. NECK: No adenopathy or JVD. LUNGS: Crackles in the bases. CARDIAC: S1, S2 muffled. ABDOMEN: Soft and nontender. EXTREMITIES: No clubbing, cyanosis, or edema. LABORATORY DATA: White blood cell count 10.6, hematocrit 36, and platelet count 126. ABG pending. Sodium 142, potassium 4.5, chloride 113, CO2 of 17, BUN 25, creatinine 1.9, and glucose 233. Cultures show no growth to date. Chest x-ray shows bilateral infiltrative changes at the bases and small effusions. ASSESSMENT: 1. Severe aortic stenosis. 2. Respiratory failure, requiring mechanical ventilation, failed extubation. 3. Question of concurrent pneumonia. 4. Renal insufficiency. PLAN: The patient is not a candidate for extubation based on the events yesterday. Her fluid status is very precarious. She does not seem to tolerate diuresis at all. I am going to go ahead and give her some albumin. We will attempt to limit her sedation. I do not think there is any reasonable hope of extubating her without some kind of intervention for the aortic valve first. Job ID: [id number]
--- NOTE | 2020-06-25 07:46 | RAD ---
Portable frontal chest radiograph: 06/25/2020 COMPARISON: 06/24/2020 HISTORY: Pneumonia FINDINGS: Stable endotracheal tube and nasogastric tube. Stable bibasilar airspace disease with assoc iated small bilateral pleural effusions. IMPRESSION: No significant interval change.
--- NOTE | 2020-06-25 09:06 | EKG ---
Test Reason : Blood Pressure : / mmHG Vent. Rate : 088 BPM Atrial Rate : 088 BPM P-R Int : 172 ms QRS Dur : 078 ms QT Int : 400 ms P-R-T Axes : 080 -15 044 degrees QTc Int : 484 ms Normal sinus rhythm Septal infarct , age undetermined Abnormal ECG No previous ECGs available Confirmed by DR. Jessica BUNDY ([id number]) on 06/25/2020 9:05:56 AM Referred By: QUYEN Confirmed By:DR. Jessica BUNDY
[2020-06-25] MEDS: Enoxaparin Sodium 40 MG/0.4 ML SYRINGE SC SCH (09:12)
[2020-06-25] MEDS: Pantoprazole 40 MG VIAL IVP SCH (09:13)
[2020-06-25] MEDS: Losartan 25 MG TAB PO SCH (09:13)
[2020-06-25] MEDS: cefTRIAXone\\ROCEPHIN 1 GM in Sodium Chloride 0.9% 100 ML IVPB SCH (11:51)
--- NOTE | 2020-06-25 12:47 | PDOC.HOSPP ---
- Subjective Encounter Date: 06/25/20 Encounter Time: 09:40 Subjective: Patient is having trouble with the event very agitated. Is she is being sedated. Her urine output remained the same on the low side. She was given albumin yesterday and today as well. Her blood pressure 109/71 in the monitor. Discussed with RN. Fiona has about 50 mL urine f since this morning. Cannot aggressively give her fluid given her severe aortic stenosis. When the potential cardiorenal syndrome I will also request nephrology to be on board. - Objective Vital Signs & Weight: Vital Signs (12 hours) Temp Pulse Resp BP Pulse Ox 06/25/20 12:00 24 H 06/25/20 10:19 57 L 06/25/20 10:00 14 06/25/20 08:00 99.0 F 14 98 06/25/20 07:47 98 06/25/20 06:00 18 06/25/20 04:00 99.3 F 14 06/25/20 02:14 110 H 121/92 H 06/25/20 01:53 14 Weight Admit Weight 164 lb Weight 164 lb 14.492 oz Most Recent Monitor Data Heart Rate from ECG 61 NIBP 103/67 NIBP BP-Mean 79 Respiration from ECG 19 SpO2 99 I&O: 06/24/20 06/25/20 06/26/20 06:59 06:59 06:59 Intake Total 1979 1674.7 Output Total 2785 730 58 Balance -806 944.7 -58 Result Diagrams: 06/25/20 06:05 06/25/20 06:05 Additional Labs: Accuchecks 06/25/20 06/24/20 06/24/20 05:42 21:02 17:02 POC Glucose 247 H 297 H 316 H Hospitalist ROS - Medication Medications: Active Medications Generic Name Dose Route Start Last Admin Trade Name Freq PRN Reason Stop Dose Admin Acetaminophen 650 mg 06/22/20 11:57 06/23/20 00:27 Tylenol PO 650 mg Q4H PRN Administration Headache/Fever/Mild Pain (1-3) Enoxaparin Sodium 40 mg 06/24/20 09:00 06/25/20 09:12 Lovenox SC 40 mg 0900 KJ Administration Ceftriaxone Sodium 1 gm/ 100 mls @ 200 mls/hr 06/23/20 11:00 06/25/20 11:51 Sodium Chloride IVPB 100 mls Q24HR KJ Administration Fentanyl Citrate 2,000 mcg/ 100 mls @ 0 mls/hr 06/22/20 13:31 06/24/20 18:47 Sodium Chloride IV 07/22/20 13:31 100 mls INF KJ Administration Protocol Per Protocol Insulin Glargine 5 units/ 0.05 mls @ 0 mls/hr 06/22/20 21:00 06/24/20 20:51 Miscellaneous Medication SC 0.05 mls HS KJ Administration Azithromycin 500 mg/ Sodium 250 mls @ 250 mls/hr 06/23/20 13:00 06/24/20 13: 04 Chloride IVPB 250 mls Q24HR KJ Administration Nicardipine HCl 50 mg/ Sodium 250 mls @ 0 mls/hr 06/24/20 08:30 06/24/20 08: 35 Chloride IV 250 mls INF KJ Administration Protocol As Directed Dexmedetomidine HCl 400 mcg/ 100 mls @ 0 mls/hr 06/24/20 09:00 06/25/20 08:00 Sodium Chloride IVPB 100 mls INF KJ Administration Protocol Per Protocol Insulin Human Lispro 0 units 06/22/20 15:07 06/25/20 05:38 Humalog SC 4 unit Q4H PRN Administration Moderate Correctional Scale Lorazepam 2 mg 06/22/20 13:31 06/24/20 20:51 Ativan SLOW IVP 07/22/20 13:31 2 mg Q1H PRN Administration Breakthrough agitation Losartan Potassium 50 mg 06/23/20 09:00 06/25/20 09:13 Cozaar PO Not Given DAILY KJ Metoprolol Succinate 25 mg 06/23/20 09:00 06/25/20 09:13 Toprol Xl PO Not Given DAILY KJ Pantoprazole Sodium 40 mg 06/23/20 09:00 06/25/20 09:13 Protonix IVP 40 mg DAILY KJ Administration Propofol 1,000 mg 06/22/20 13:31 06/24/20 20:51 Diprivan IV 07/22/20 13:31 1,000 mg INF PRN Administration TO ACHIEVE GOAL RASS Protocol Sodium Chloride 10 ml 06/25/20 09:00 06/25/20 09:16 Flush - Normal Saline IVF 10 ml Q12HR KJ Administration - Exam General Appearance: ill appearing General - other findings: On vent and quiet agitated. Eye: PERRL ENT: normocephalic atraumatic Neck: supple Heart: RRR Respiratory: CTAB, normal chest expansion Gastrointestinal: soft, diminished bowl sounds Extremities - other findings: No volume overload picture Skin - other findings: Extremities skin looks intact no dependent edema in her extremities. Psychiatric: not oriented Hosp A/P - Plan Sepsis secondary to community-acquired pneumonia present on admission Acute hypoxic respiratory failure secondary to pneumonia and vent Leukocytosis due to pneumonia COVID negative Blood cultures negative so far Continue with IV antibiotics NSTEMI type II mismatch demand ischemia due to sepsis and pneumonia No aggressive intervention except conservative medical management Hypertension/borderline low normal blood pressure -Hold her home regimen of losartan Severe aortic stenosis -Seems this has been addressed in the past and the patient refused Acute on chronic diastolic heart failure -Started on diuretics -Monitor her in and output -Echo report pending Mild bilateral pleural effusion--no intervention -Groundglass densities and nodular densities right lower lobe -Viral pneumonia with COVID is ruled out. Would benefit with a repeat CT of the chest in 3 to 6 months to evaluate for this existence are growth of these nodules. Full code Failed extubation She is reintubated. Chest x-ray today shows bilateral effusion and airspace disease more pronounced Persistent pulmonary vascular congestion -D-dimer is quite high at 3.46 -COVID negative Hypokalemia -Being replaced with IV fluid Type 2 diabetes mellitus A1c of 6.9 Hyperglycemia -He is already on scheduled Lantus 5 units and sliding scale insulin Lasix IV daily Moderate to severe aortic stenosis -Limits further medical management with aggressive hydration for her acute kidney injury. Oliguria -Creatinine jumped from 1.1-1.9 in the last 24 hours. -Nephrology consult placed. Fiona has about 50 mL urine f since this morning. -sHe is getting albumin yesterday and today. -Cannot aggressively give her fluid given her severe aortic stenosis. -with the high risk for cardiorenal syndrome, I will also request nephrology to be on board. Both powerhouse mechanic and slice plug cutter operator note reviewed. Dr. Shah made a note that may be a transfer for valvuloplasty is in the working plan.
[2020-06-25] MEDS: Azithromycin 500 MG in Sodium Chloride 0.9% 250 ML 250 ML IVPB SCH (13:45)
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
[2020-06-25] MEDS ORDERED: Dextrose 5% in Water 1,000 ML IV PRN (20:01)
[2020-06-25] MEDS ORDERED: Dextrose 50% Abboject 50 ML SYRINGE SLOW IVP PRN (20:01)
[2020-06-25] MEDS: Insulin Glargine 5 UNITS in Pre-Filled Syringe SC SCH (20:48)
[2020-06-26] MEDS: Lorazepam 2 MG/ML VIAL SLOW IVP PRN ×6 (01:52→22:50)
[2020-06-26] MEDS: Acetaminophen 325 MG TAB PO PRN ×2 (02:16→12:33)
[2020-06-26] MEDS: HumaLOG 300 UNITS/3 ML VIAL SC PRN ×3 (03:35→12:33)
[2020-06-26 04:10] LABS: #Lymphocytes 2.4 thou/uL (1.20-3.40); #Monocytes 0.9 thou/uL (0.11-0.59); #Neutrophils 6.6 thou/uL (1.40-6.50); %Eosinophils 0.5 % (0.0-10.0); %Lymphocytes 23.9 % (21.0-51.0); %Monocytes 8.9 % (0.0-10.0); %Neutrophils 66.8 % (42.0-75.0); Hemoglobin 11.4 g/dL (12.0-16.0); Mean Corpuscular HGB CONC 33.4 g/dL (32.0-36.0); Mean Corpuscular Hemoglobin 30.5 pg (27.0-31.0); Mean Corpuscular Volume 91.2 fL (78.0-98.0); Mean Platelet Volume 9.4 fL (7.4-10.4); Platelet Count 175 thou/uL (130-400); RBC Distribution Width 14.1 % (11.5-14.5); Red Blood Cell (RBC) Count 3.75 mill/uL (4.20-5.40); White Blood Cell (WBC) Count 9.8 thou/uL (4.8-10.8)
[2020-06-26 04:34] LABS: Anion Gap 14 mmol/L (10-20); BUN (Urea Nitrogen) 36 mg/dL (9.8-20.1); Calc. Creatinine Clearance 24 mL/min (70-130); Calcium 8.3 mg/dL (7.8-10.44); Carbon Dioxide 20 mmol/L (23-31); Chloride 111 mmol/L (98-107); Estimated GFR-MDRD 21; Glucose 232 mg/dL (83-110); Sodium 141 mmol/L (136-145)
[2020-06-26] MEDS: fentaNYL Citrate/PF 2,000 MCG in Sodium Chloride 0.9% 60 ML IV SCH (06:30)
[2020-06-26 07:12] LABS: Actual Bicarbonate (HCO3a) 17.1 mEq/L (22-28); Base Excess (BEa) -6.2 mEq/L (-2.0 to +3.0); CO2 Tension 27.9 mmHg (35.0-45.0); Calcium, Ionized (arterial) 1.15 mmol/L (1.12-1.30); Carboxyhemoglobin (COHb) 0.3 gm% (0.0-3.0); Hemoglobin (Hb) 12.7 g/dL (12.0-16.0); O2 Tension (PaO2), arterial 88.7 mmHg (> 60.0); Potassium - ABG Lab 3.94 mmol/L (3.70-5.30); pH, Arterial 7.41 (7.35-7.45)
[2020-06-26 07:14] LABS: ALV-art Gradient 161.625 (0-20); Puncture Site LRA
[2020-06-26] MEDS: Losartan 25 MG TAB PO SCH (08:30)
--- NOTE | 2020-06-26 08:32 | PRG ---
DATE OF SERVICE: 06/26/2020 35 minutes of critical care time. SUBJECTIVE: The patient remains intubated on mechanical ventilation. OBJECTIVE: VITAL SIGNS: Temperature is 100.2 with T-max 100.6, pulse 74, blood pressure 105/71. She is currently receiving no vasopressors. 24-hour intake was 1319 and output was 302. HEENT: Unremarkable. NECK: No JVD. CARDIAC: S1 and S2. Regular. There is hardly any perceptible heart sound. LUNGS: Diminished breath sounds at the bases. ABDOMEN: Soft and nontender. EXTREMITIES: No overt edema. LABORATORY DATA: White blood cell count 9.8, hematocrit 34.2, and platelet count 175. pH of 7.41, pCO2 of 27, pO2 of 88 on SIMV rate 14, tidal volume 500, PEEP of 8, pressure support 10, and FiO2 of 40%. Sodium 141, potassium 4.0, chloride 111, CO2 of 20, BUN 36, creatinine 2.2, glucose 232. ASSESSMENT: 1. Severe aortic stenosis. 2. Respiratory failure requiring mechanical ventilation with one failed extubation. 3. Acute renal insufficiency. 4. Question of concurrent pneumonia/infection given low-grade fever. PLAN: 1. I will go ahead and stop the azithromycin and the Rocephin and try a different antibiotic agent given persistent fever. 2. She is not weanable until there is either some intervention in regard to her aortic valve or the family makes a decision that this would be palliative in nature and we would not reintubate in the case of failure. 3. We will reduce Lovenox dose to 30 daily given her renal insufficiency. 4. She is receiving enteral tube feeds. 5. Prognosis remains extremely poor for functional recovery. Job ID: [id number]
[2020-06-26] MEDS: Sodium Chloride 0.9% 1,000 ML IV SCH (08:45)
[2020-06-26] MEDS: Insulin Glargine 5 UNITS in Pre-Filled Syringe SC SCH ×2 (08:46→19:34)
[2020-06-26] MEDS ORDERED: Enoxaparin Sodium 30 MG/0.3 ML SYRINGE SC SCH (09:00)
--- NOTE | 2020-06-26 09:28 | RAD ---
PORTABLE CHEST: HISTORY: Followup pneumonia. COMPARISON: 06/25/2020 exam. FINDINGS: Endotracheal and NG tubes are in satisfactory position. Pleural and parenchymal lung changes are sta ble. IMPRESSION: Stable exam. POS: MIGUEL
[2020-06-26] MEDS: Pantoprazole 40 MG VIAL IVP SCH (09:40)
--- NOTE | 2020-06-26 12:40 | PDOC.HOSPP ---
- Subjective Encounter Date: 06/26/20 Encounter Time: 10:40 Subjective: Patient is still quite agitated. She is on fentanyl as well as Precedex. She is quite awake on the vent. Moving her lower extremities spontaneously. Discussed with RN. Family is planning to come and see her today they will decide whether withdrawal of core care versus transfer to [place] for volvuloplasty. Dr. rushing has seen her. Will give her gentle fluid for maintenance. Her blood pressure seems to be normotensive in the monitor. - Objective Vital Signs & Weight: Vital Signs (12 hours) Temp Pulse Resp BP Pulse Ox 06/26/20 12:00 14 06/26/20 11:12 65 132/90 06/26/20 11:00 100.0 F H 06/26/20 10:00 100.1 F H 14 06/26/20 08:00 100.0 F H 14 98 06/26/20 06:44 75 148/125 H 06/26/20 06:00 14 06/26/20 04:00 100 F H 14 06/26/20 02:54 60 06/26/20 02:00 14 Weight Admit Weight 164 lb Weight 164 lb 14.492 oz Most Recent Monitor Data Heart Rate from ECG 64 NIBP 83/56 NIBP BP-Mean 65 Respiration from ECG 14 SpO2 99 I&O: 06/25/20 06/26/20 06/27/20 06:59 06:59 06:59 Intake Total 1674.7 1319.4 Output Total 730 302 91 Balance 944.7 1017.4 -91 Result Diagrams: 06/26/20 03:10 06/26/20 03:10 Additional Labs: Accuchecks 06/26/20 06/26/20 06/25/20 08:14 03:40 23:51 POC Glucose 224 H 225 H 214 H 06/25/20 06/25/20 06/25/20 20:53 17:27 12:05 POC Glucose 235 H 273 H 241 H Hospitalist ROS - Medication Medications: Active Medications Generic Name Dose Route Start Last Admin Trade Name Freq PRN Reason Stop Dose Admin Acetaminophen 650 mg 06/22/20 11:57 06/26/20 02:16 Tylenol PO 650 mg Q4H PRN Administration Headache/Fever/Mild Pain (1-3) Enoxaparin Sodium 30 mg 06/26/20 09:00 08/27/20 08:45 Lovenox SC 30 mg 0900 KJ Administration Fentanyl Citrate 2,000 mcg/ 100 mls @ 0 mls/hr 06/22/20 13:31 06/26/20 06:30 Sodium Chloride IV 07/22/20 13:31 100 mls INF KJ Administration Protocol Per Protocol Nicardipine HCl 50 mg/ Sodium 250 mls @ 0 mls/hr 06/24/20 08:30 06/24/20 08: 35 Chloride IV 250 mls INF KJ Administration Protocol As Directed Dexmedetomidine HCl 400 mcg/ 100 mls @ 0 mls/hr 06/24/20 09:00 06/25/20 22:28 Sodium Chloride IVPB 100 mls INF KJ Administration Protocol Per Protocol Insulin Glargine 5 units/ 0.05 mls @ 0 mls/hr 06/25/20 21:00 06/26/20 08:46 Miscellaneous Medication SC 0.05 mls BID KJ Administration Sodium Chloride 1,000 mls @ 50 mls/hr 06/26/20 08:30 06/26/20 08:45 Normal Saline 0.9% IV 1,000 mls .Q20H KJ Administration Insulin Human Lispro 0 units 06/22/20 15:07 06/26/20 08:46 Humalog SC 4 unit Q4H PRN Administration Moderate Correctional Scale Lorazepam 2 mg 06/22/20 13:31 06/26/20 01:52 Ativan SLOW IVP 07/22/20 13:31 2 mg Q1H PRN Administration Breakthrough agitation Losartan Potassium 50 mg 06/23/20 09:00 06/26/20 08:30 Cozaar PO Not Given DAILY KJ Metoprolol Succinate 25 mg 06/23/20 09:00 06/26/20 08:30 Toprol Xl PO Not Given DAILY KJ Pantoprazole Sodium 40 mg 06/23/20 09:00 06/26/20 09:40 Protonix IVP 40 mg DAILY KJ Administration Propofol 1,000 mg 06/22/20 13:31 06/24/20 20:51 Diprivan IV 07/22/20 13:31 1,000 mg INF PRN Administration TO ACHIEVE GOAL RASS Protocol Sodium Chloride 10 ml 06/25/20 09:00 06/26/20 09:41 Flush - Normal Saline IVF 10 ml Q12HR KJ Administration - Exam General Appearance: ill appearing General - other findings: On vent and sedated Eye: PERRL ENT: normocephalic atraumatic Neck: supple Heart: RRR Respiratory: normal chest expansion Neurological: no focal deficits Psychiatric: not oriented Hosp A/P - Plan Sepsis secondary to community-acquired pneumonia present on admission Acute hypoxic respiratory failure secondary to pneumonia and vent Leukocytosis due to pneumonia COVID negative Blood cultures negative so far Continue with IV antibiotics NSTEMI type II mismatch demand ischemia due to sepsis and pneumonia No aggressive intervention except conservative medical management Hypertension/borderline low normal blood pressure -Hold her home regimen of losartan Severe aortic stenosis -Seems this has been addressed in the past and the patient refused Acute on chronic diastolic heart failure -Started on diuretics -Monitor her in and output -Echo report pending Mild bilateral pleural effusion--no intervention -Groundglass densities and nodular densities right lower lobe -Viral pneumonia with COVID is ruled out. Would benefit with a repeat CT of the chest in 3 to 6 months to evaluate for this existence are growth of these nodules. Full code Failed extubation She is reintubated. Chest x-ray today shows bilateral effusion and airspace disease more pronounced Persistent pulmonary vascular congestion -D-dimer is quite high at 3.46 -COVID negative Hypokalemia -Being replaced with IV fluid Type 2 diabetes mellitus A1c of 6.9 Hyperglycemia -He is already on scheduled Lantus 5 units and sliding scale insulin Lasix IV daily Moderate to severe aortic stenosis -Limits further medical management with aggressive hydration for her acute kidney injury. Oliguria -Creatinine jumped from 1.1-1.9 in the last 24 hours. -Nephrology consult placed. Fiona has about 50 mL urine f since this morning. -sHe is getting albumin yesterday and today. -Cannot aggressively give her fluid given her severe aortic stenosis. -with the high risk for cardiorenal syndrome, I will also request nephrology to be on board. Both metallurgical specialist and antique clock repairer note reviewed. Dr. Shah made a note that may be a transfer for valvuloplasty is in the working plan. enteral feed sedated on vent 50ml/hr maintenance fluid Urine output is less. Dr. rushing has seen her. Discussed with RN. Family is planning to come and see her today- they will decide withdrawal of core care versus transfer to [place] for volvuloplasty.
[2020-06-26] MEDS: Morphine 4 MG/ML VIAL SLOW IVP PRN ×8 (15:39→22:50)
--- NOTE | 2020-06-26 15:59 | PRG ---
DATE OF SERVICE: 06/26/2020 SUBJECTIVE: Ms. Claytons status today is worsened. Her creatinine has increased. She is not able to respond appropriately. I tried to speak with Ms. Watkins today. She is currently intubated and sedated, but would not answer questions appropriately. Her blood pressure is also marginal in the 80s. I did review her echo. Her LVEF was markedly diminished with severe aortic stenosis present. OBJECTIVE: VITAL SIGNS: T-max 101.1, blood pressure 78/62, pulse 65. LUNGS: Rhonchi and rales bilaterally. HEART: Regular rate and rhythm with 2/6 systolic ejection murmur. ABDOMEN: Soft, nontender, nondistended. EXTREMITIES: No edema. PERTINENT LABORATORY DATA: Hemoglobin 11.4, hematocrit 34.2. Creatinine 2.21. IMPRESSION: 1. Severe aortic stenosis. 2. Respiratory failure. 3. Cardiomyopathy, likely related to aortic stenosis. RECOMMENDATIONS: I again had a long discussion with Ms. Claytons daughter about her current lack of progress. After discussing the case with Dr. Mark Anne, it is not likely we are going to be able to extubate her without intervening with balloon valvuloplasty. This can be performed at [facility] or in [place] at the [facility]. At this state, either option to be performed, but need to make decision today on whether we should proceed with more aggressive approach or more conservative approach. In the past, Ms. Watkins has opted for more conservative approach and not interested in further procedures. Ms. Schneider, her daughter is confirming this with other family members. Otherwise, from my standpoint, I have no further recommendations. At this point, it appears Ms. Lima status is not likely to improve despite any further means or measures, but can certainly proceed with more aggressive measures, if the family wishes. Addendum: I called this afternoon to discuss the patient's status with the nurse. The family has opted for conservative approach and will withdraw support after confirming her wishes to other family members and her boat dock operator. No further recommendations. Job ID: [id number]
[2020-06-27] MEDS: Morphine 4 MG/ML VIAL SLOW IVP PRN ×7 (01:43→23:11)
[2020-06-27] MEDS: Lorazepam 2 MG/ML VIAL SLOW IVP PRN ×4 (01:43→20:56)
[2020-06-27] MEDS: Sodium Chloride 0.9% 1,000 ML IV SCH (05:32)
--- NOTE | 2020-06-27 05:38 | CON ---
DATE OF CONSULTATION: CONSULTING PHYSICIAN: Caesar Schwartz MD REQUESTING PHYSICIAN: Dr. Sprague. REASON FOR CONSULTATION: Acute on chronic kidney disease. IMPRESSION: 1. Acute on chronic kidney disease. This is likely hemodynamically mediated in the context of this patient with critical aortic stenosis with tenuous fluid management. I do believe that the patient does have some component of prerenal due to intravascular depletion. 2. Severe aortic stenosis. 3. Metabolic acidosis. PLAN: 1. We will recommend gentle IV fluid with close monitoring of the patient's respiratory status and cardiac function given the tenuous and difficult fluid management in the patient with this degree of aortic stenosis. 2. Renally dose all medications and avoid potentially nephrotoxic agents. 3. Further management to be dependent on the clinical course. HISTORY OF PRESENT ILLNESS: History is that of 80-year-old female patient with severe aortic stenosis, has been on medical management for some years under the ausp[facility]. The patient presented here with altered mental status, fever, and cough and is currently on life support. Urinary output has been decreasing and the patient's creatinine has been on the rise. As a result of this, decision has been taken to involve Renal in the management of this case. PAST MEDICAL HISTORY: Significant for hypertension, aortic stenosis, type 2 diabetes, iron-deficiency anemia, osteoporosis, TIA, major depressive disorder, and hearing loss. MEDICATIONS: Reviewed and as documented on [employer]. ALLERGIES: PHYSICAL EXAMINATION: GENERAL: The patient was found to be on life support, noted with the following vital signs. VITAL SIGNS: Afebrile, blood pressure 79/52, pulse of 60, FiO2 of 40. HEENT: Remarkable for endotracheal tube in place. CARDIOVASCULAR SYSTEM: First and second heart sounds were heard. RESPIRATORY SYSTEM: Revealed vented sounds. DIGESTIVE SYSTEM: Revealed an obese abdomen. EXTREMITIES: No peripheral edema. SKIN: No new gross rash. SUMMARY: An 80-year-old female patient with critical aortic stenosis, now experiencing acute on chronic kidney disease. Thank you for this consultation. We will follow with you. Job ID: [id number]
--- NOTE | 2020-06-27 07:37 | PRG ---
DATE OF SERVICE: 06/27/2020 SUBJECTIVE: Yesterday, the patient's family agreed to enact her advance directive and made her DNR and passed that she be extubated. OBJECTIVE: GENERAL: The patient is currently comfortable, but with poor responsiveness. VITAL SIGNS: Have not been checked other than a pulse of 74. HEENT: Unremarkable. NECK: No JVD. CARDIAC: S1 and S2, regular with 3/6 systolic murmur. LUNGS: Coarse breath sounds. ABDOMEN: Soft. EXTREMITIES: No edema. ASSESSMENT: 1. End-stage aortic stenosis. 2. Renal insufficiency. 3. Status post respiratory failure requiring mechanical ventilation. PLAN: The patient can be transitioned to the medical floor for palliative care. I would not expect her to last much longer. Job ID: [id number]
[2020-06-27] MEDS: Insulin Glargine 5 UNITS in Pre-Filled Syringe SC SCH ×2 (10:08→20:55)
--- NOTE | 2020-06-27 12:52 | PDOC.HOSPP ---
- Subjective Encounter Date: 06/27/20 Encounter Time: 11:20 Subjective: Patient was extubated with the family consent on 3:43 PM. Comfort care approach adopted. She is transferred to the floor this morning. Her blood pressure is stable at 139/89 her sats 95% with 2 L oxygen by nasal cannula and she is afebrile. - Objective Vital Signs & Weight: Vital Signs (12 hours) Temp Pulse Resp BP Pulse Ox 06/27/20 09:00 98.6 F 99 18 139/89 95 Weight Admit Weight 164 lb Weight 164 lb 14.492 oz Most Recent Monitor Data Heart Rate from ECG 77 NIBP 79/52 NIBP BP-Mean 61 Respiration from ECG 17 SpO2 99 I&O: 06/26/20 06/27/20 06/28/20 06:59 06:59 06:59 Intake Total 1319.4 1239 Output Total 302 253 50 Balance 1017.4 986 -50 Result Diagrams: 06/26/20 03:10 06/26/20 03:10 Hospitalist ROS - Medication Medications: Active Medications Generic Name Dose Route Start Last Admin Trade Name Freq PRN Reason Stop Dose Admin Acetaminophen 650 mg 06/22/20 11:57 06/26/20 12:33 Tylenol PO 650 mg Q4H PRN Administration Headache/Fever/Mild Pain (1-3) Insulin Glargine 5 units/ 0.05 mls @ 0 mls/hr 06/25/20 21:00 06/27/20 10:08 Miscellaneous Medication SC Not Given BID [facility] Insulin Human Lispro 0 units 06/22/20 15:07 06/26/20 12:33 Humalog SC 6 unit Q4H PRN Administration Moderate Correctional Scale Lorazepam 2 mg 06/26/20 14:23 06/27/20 07:06 Ativan SLOW IVP 2 mg Q2H PRN Administration Anxiety/Agitation Morphine Sulfate 4 mg 06/26/20 14:23 06/27/20 01:43 Morphine SLOW IVP 4 mg Q5MIN PRN Administration dyspnea Sodium Chloride 10 ml 06/25/20 09:00 06/27/20 10:09 Flush - Normal Saline IVF Not Given Q12HR KJ - Exam General Appearance: ill appearing Eye: PERRL ENT: normocephalic atraumatic Neck: supple Heart: RRR Respiratory: CTAB, normal chest expansion Neurological: no focal deficits Psychiatric: not oriented Hosp A/P - Plan Sepsis secondary to community-acquired pneumonia present on admission Acute hypoxic respiratory failure secondary to pneumonia and vent Leukocytosis due to pneumonia COVID negative Blood cultures negative so far Continue with IV antibiotics NSTEMI type II mismatch demand ischemia due to sepsis and pneumonia No aggressive intervention except conservative medical management Hypertension/borderline low normal blood pressure -Hold her home regimen of losartan Severe aortic stenosis -Seems this has been addressed in the past and the patient refused Acute on chronic diastolic heart failure -Started on diuretics -Monitor her in and output -Echo report pending Mild bilateral pleural effusion--no intervention -Groundglass densities and nodular densities right lower lobe -Viral pneumonia with COVID is ruled out. Would benefit with a repeat CT of the chest in 3 to 6 months to evaluate for this existence are growth of these nodules. Full code Failed extubation She is reintubated. Chest x-ray today shows bilateral effusion and airspace disease more pronounced Persistent pulmonary vascular congestion -D-dimer is quite high at 3.46 -COVID negative Hypokalemia -Being replaced with IV fluid Type 2 diabetes mellitus A1c of 6.9 Hyperglycemia -He is already on scheduled Lantus 5 units and sliding scale insulin Lasix IV daily Moderate to severe aortic stenosis -Limits further medical management with aggressive hydration for her acute kidney injury. Oliguria -Creatinine jumped from 1.1-1.9 in the last 24 hours. -Nephrology consult placed. Fiona has about 50 mL urine f since this morning. -sHe is getting albumin yesterday and today. -Cannot aggressively give her fluid given her severe aortic stenosis. -with the high risk for cardiorenal syndrome, I will also request nephrology to be on board. Both liquor runner and salesperson women's dresses note reviewed. Dr. Shah made a note that may be a transfer for valvuloplasty is in the working plan. enteral feed sedated on vent 50ml/hr maintenance fluid Urine output is less. Dr. rushing has seen her. Discussed with RN. Family is planning to come and see her today- they will decide withdrawal of core care versus transfer to [place] for volvuloplasty. Patient was extubated with the family consent on 3:43 PM. Comfort care approach adopted. She is transferred to the floor this morning. Prognosis is quite guarded and her demise is imminent.
[2020-06-28] MEDS: Morphine 4 MG/ML VIAL SLOW IVP PRN ×2 (01:44→05:15)
[2020-06-28 08:01] VITALS: BP 106/71; TEMP 103.2
--- NOTE | 2020-06-28 15:12 | EKG ---
Test Reason : INTUB Blood Pressure : / mmHG Vent. Rate : 096 BPM Atrial Rate : 096 BPM P-R Int : 184 ms QRS Dur : 074 ms QT Int : 370 ms P-R-T Axes : 061 -12 016 degrees QTc Int : 467 ms Normal sinus rhythm Minimal voltage criteria for LVH, may be normal variant Septal infarct , age undetermined Abnormal ECG Confirmed by MAGGIE KEANE DO ([id number]), editor greeting card SYBIL LAL ([id number]) on 06/28/2020 3:12:06 PM Referred By: Confirmed By:MAGGIE KEANE DO
--- NOTE | 2020-07-01 15:12 | DIS ---
DATE OF ADMISSION: 06/22/2020 DATE OF DISCHARGE: 06/28/2020 DISCHARGE DIAGNOSES: 1. Sepsis, secondary to community-acquired pneumonia, present on admission. 2. Acute hypoxic respiratory failure, secondary to pneumonia requiring intubation. 3. Leukocytosis, secondary to pneumonia. 4. COVID negative. 5. [id number] myocardial infarction, type 2, mismatched. 6. Severe aortic stenosis. HOSPITAL COURSE: This was a 80-year-old female admitted with sepsis, secondary to community-acquired pneumonia. She was ruled out for COVID. Due to severe hypoxic respiratory failure, she was intubated. She also had several comorbidities, including severe aortic stenosis and bilateral pleural effusion, acute on chronic diastolic heart failure, and type 2 diabetes mellitus. On , she was extubated. However, she required reintubation. Family adopted withdrawal of the care. On at 3:43 p.m., patient was extubated and transferred to the regular medical floor. On around 8:00 a.m., she had her demise. Primary cause of demise, pulmonary dysfunction, secondary to pneumonia and hypoxia. Secondary cause, severe aortic stenosis, pulmonary effusion, and acute on chronic diastolic heart failure. Job ID: [id number] MTDD
== END 2020-06-28 08:21 | disposition expired | DRG 870 ==
LOC: ERS 09:58 → CCU 10:37 → T4-B 06-27 09:12
PROVIDERS: ADMIT Internal Medicine; ATTEND Internal Medicine
PROC: 0BH17EZ Insertion of Endotracheal Airway into Trachea, Via Natural or Artificial Opening (ICD-10-PCS; principal; 2020-06-22)
PROC: 5A1955Z Respiratory Ventilation, Greater than 96 Consecutive Hours (ICD-10-PCS; 2020-06-22)
DX: A41.9 Sepsis, unspecified organism (principal); J18.9 Pneumonia, unspecified organism; J96.01 Acute respiratory failure with hypoxia; I50.33 Acute on chronic diastolic (congestive) heart failure; Z51.5 Encounter for palliative care; I21.A1 Myocardial infarction type 2; E87.2 Acidosis; I42.9 Cardiomyopathy, unspecified; I13.0 Hypertensive heart and chronic kidney disease with heart failure and stage 1 through stage 4 chronic kidney disease, or unspecified chronic kidney disease; N17.9 Acute kidney failure, unspecified; Z20.828 Contact with and (suspected) exposure to other viral communicable diseases; I25.10 Atherosclerotic heart disease of native coronary artery without angina pectoris; E78.5 Hyperlipidemia, unspecified; F32.9 Major depressive disorder, single episode, unspecified; E86.0 Dehydration; I35.0 Nonrheumatic aortic (valve) stenosis; H91.90 Unspecified hearing loss, unspecified ear; F41.9 Anxiety disorder, unspecified; E11.65 Type 2 diabetes mellitus with hyperglycemia; M81.0 Age-related osteoporosis without current pathological fracture; N18.9 Chronic kidney disease, unspecified; E11.22 Type 2 diabetes mellitus with diabetic chronic kidney disease; E87.6 Hypokalemia; R45.1 Restlessness and agitation; Z86.73 Personal history of transient ischemic attack (TIA), and cerebral infarction without residual deficits; Z88.8 Allergy status to other drugs, medicaments and biological substances; Z98.51 Tubal ligation status; Z79.84 Long term (current) use of oral hypoglycemic drugs
CPT/HCPCS: 31500; 36415; 36416; 51702; 70450; 71045; 71275; 80048; 80053; 81003; 81015; 82550; 82553; 82805; 83036; 83605; 83735; 83880; 84443; 84484; 85025; 85379; 87040; 87086; 93005; 93010; 93306; 94002; 94003; 94660; 96365; 96366; 96368; 96375; 96376; 99292; C9113; J0456; J0696; J1650; J1815; J1940; J1956; J2060; J2250; J2270; J2704; J3010; J3475; J3480; J3490; J7050; P9047; Q9967; U0002